=== PATIENT | male | born 1975 | race Caucasian/White ===

== ENCOUNTER 2019-11-13 14:51 | Emergency (ER) | payer OTHER, SELFPAY ==
[2019-11-13 14:56] VITALS: BP 120/82; PULSE 98; RESP 16; TEMP 36.9; O2SAT 98; BMI 24.3
[2019-11-13] MEDS: LIDO 1%/SOD BICARB 8.4% (10ML) 10 ML SYRINGE INJ (15:35)
--- NOTE | 2019-11-13 15:40 | ED.SKABFB ---
HPI - Skin/Abscess/Foreign Bdy <ISAURA SandovalP - Last Filed: 11/13/19 19:46> General Chief complaint: Skin/Abscess/Foreign Body Stated complaint: left middle finger needs drained Time Seen by Provider: 11/13/19 14:57 Source: patient Mode of arrival: Ambulatory Limitations: no limitations History of Present Illness HPI narrative: This is a 44-year-old male, smoker, who presents to ED with significant other with chief complain of left 3rd distal finger pain around the nail for last 3 days. Patient denies fever, chills, nausea or vomiting. Patient noticed soft spot around the nails and hardening on finger pads. Patient had started on Keflex q.i.d. for 7 days yesterday when he was evaluated by his primary care physician at [facility]. Spouse reports patient already had about 4 doses of Keflex at this time but pain is not improving so day presents to ED. patient denies injuring affected finger or has open skin. Patient denies history of diabetes or frequent skin infection. Patient dominant hand right-sided. 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 Related Data Home Medications Medication Instructions Recorded Confirmed No Known Home Medications 04/17/18 04/17/18 Allergies Allergy/AdvReac Type Severity Reaction Status Date / Time No Known Drug Allergies Allergy Verified 04/16/18 08:52 Review of Systems <BRADEN Sandoval - Last Filed: 11/13/19 19:46> Review of Systems Narrative: General: Denies fever, chills, fatigue, malaise, sweats. HEENT: Denies sinus pain, ear pain, sore throat, difficulty swallowing, dizziness. Respiratory: Denies dyspnea, cough, wheezing, hemoptysis, sputum. Cardiovascular: Denies chest pain, palpitations, orthopnea, edema. Gastrointestinal: Denies nausea, vomiting, abdominal pain, diarrhea, constipation, melena. : Denies dysuria, frequency, incontinence, hematuria, urinary retention. Musculoskeletal: See HPI Skin: Denies rash, skin lesions, or other. Neurologic: Denies weakness, headache, numbness, change in speech, confusion, seizures, incoordination. Psychiatric: No concerning psychosocial issues. 12-point review of systems is negative except for those stated above. Patient History <BRADEN Sandoval - Last Filed: 11/13/19 19:46> Medical History Arthritis (Acute) Surgical History Hx of right knee surgery (Acute) Social History household members: spouse Smoking Status: Current every day smoker alcohol intake: current Smoking Status: Current every day smoker alcohol intake frequency: a few times a week Substance Use Type: does not use Exam <BRADEN Sandoval - Last Filed: 11/13/19 19:46> Narrative Exam Narrative: General appearance: well developed, well nourished, in no acute distress. Head: normocephalic, atraumatic, no scalp lesions, non-tender. ENT: Bilateral auditory canals and tympanic membranes clear. Hearing grossly intact. Nose without bleeding, purulent discharge, septal hematoma or deviation. Turbinate without erythema or swelling. Facial sinuses nontender to palpate. Mucous membrane moist, no mucosal lesion. Throat without erythema, tonsillar hypertrophy or exudate. Uvula in midline, airway patent. Neck/Thyroid: neck supple, full range of motion, no visible masses or meningeal signs. No JVD, non-tender without lymphadenopathy. Skin: no suspicious rashes, lesions over visible areas. Warm and dry and appropriate color for ethnicity. Heart: no clubbing, no cyanosis, no edema. S1 and S2 normal. RRR w/o murmurs, clicks, or bruits. Lungs: Breathing even and unlabored. No stridor. No accessory muscles used. Able to speak in full sentences. Chest: normal shape and expansion. Abdomen: non-obese, non-distended. Neurologic: alert and oriented. 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 Psych: good eye contact, normal affect. Initial Vital Signs Initial Vital Signs: Vital Signs Temperature 98.5 F 11/13/19 14:56 Pulse Rate 98 H 11/13/19 14:56 Respiratory Rate 16 11/13/19 14:56 Blood Pressure 120/82 11/13/19 14:56 Pulse Oximetry 98 11/13/19 14:56 Extrem Left upper extremity: wrist and hand Details: abnormal to inspection, normal capillary refill, neuromotor exam normal, neurosensory exam normal, tendon exam normal, tenderness Location: of the 3rd digit (dorsal aspect Surrounding the nail and finger pad) Location: at the proximal phalanx, vascular exam Details: radial pulse present and normal capillary refill, normal ROM of fingers (Tender but is able to move against resistance), warmth and swelling; no foreign bodies and no puncture wound Right lower extremity: normal to inspection and full ROM <Denita Ho DO - Last Filed: 11/21/19 07:38> Initial Vital Signs Initial Vital Signs: Vital Signs Temperature 98.5 F 11/13/19 14:56 Pulse Rate 98 H 11/13/19 14:56 Respiratory Rate 16 11/13/19 14:56 Blood Pressure 120/82 11/13/19 14:56 Pulse Oximetry 98 11/13/19 14:56 Procedures <[facility] - Last Filed: 11/13/19 19:46> Abscess I/D I&D #1: Site: hand (3rd finger distal phalange) Side (if applicable): left Local Anesthetic: lidocaine 1% and with bicarb Amount of anesthesia used (mL): 2 Technique: incised with #11 blade Amount of fluid expressed (mL): 0.5 Irrigation: Yes Packing used?: none Scores <BRADEN Sandoval - Last Filed: 11/13/19 19:46> GCS [place] coma scale eye opening: Spontaneous [place] coma scale verbal response: Orientated [place] coma scale motor response: Obey commands [place] coma scale total score: 15 Course <[facility] - Last Filed: 11/13/19 19:46> Orders Ordered: Discontinued Medications Diphtheria/Tetanus/Acell Pertussis (Adacel) 0.5 ml IM .ONCE ONE Stop: 11/13/19 15:37 Last Admin: 11/13/19 15:44 Dose: 0.5 ml Documented by: DELVIS Lidocaine/Sodium Bicarbonate (Buffered Lidocaine 10 Ml Syr) 10 ml INJ NOW ONE Stop: 11/13/19 15:07 Last Admin: 11/13/19 15:35 Dose: 2 ml Documented by: DELVIS Vital Signs Vital signs: Vital Signs - 8 hr 11/13/19 14:56 Temperature 98.5 F Pulse Rate 98 H Respiratory Rate 16 Blood Pressure 120/82 Pulse Oximetry 98 <Denita Ho DO - Last Filed: 11/21/19 07:38> Orders Ordered: Discontinued Medications Diphtheria/Tetanus/Acell Pertussis (Adacel) 0.5 ml IM .ONCE ONE Stop: 11/13/19 15:37 Last Admin: 11/13/19 15:44 Dose: 0.5 ml Documented by: DELVIS Lidocaine/Sodium Bicarbonate (Buffered Lidocaine 10 Ml Syr) 10 ml INJ NOW ONE Stop: 11/13/19 15:07 Last Admin: 11/13/19 15:35 Dose: 2 ml Documented by: DELVIS Vital Signs Vital signs: Vital Signs - 8 hr 11/13/19 14:56 Temperature 98.5 F Pulse Rate 98 H Respiratory Rate 16 Blood Pressure 120/82 Pulse Oximetry 98 MDM - Skin/Abscess/Foreign Bdy <BRADEN Sandoval - Last Filed: 11/13/19 19:46> Differential Diagnosis Differential diagnosis: Likely abscess of skin or subcutaneous tissue, cellulitis and other (Paronychia) Medical Records Attestation: I reviewed the patient's medical records. [facility] Narrative Medical decision making narrative: This is a 44-year-old male who presents to ED with left middle finger distal phalanx pain, swelling, redness for last 3 days. Patient was seen at [facility] and was started on Keflex 500 mg q.i.d. for 7 day course and had completed 4-5 doses at this time without improvement at this time. Spouse states they were hoping the pain will improve after 24 hour after starting antibiotic medication but there was no improvement and the decided to come in to ED for possible I&D. Affected side right above the nail in distal digit, fluctuation. Patient reports extreme tenderness to palpate and increasing pain with the extension and flexion of affected digit but neurovascular exam was intact with motor exam. Patient denies constitutional symptoms. He has been soaking in Epsom salt frequently last couple of days. I & D completed on affected finger, please see procedural note and take purulent discharge has been expressed. Wound culture was obtained and it is pending for sensitivity. Patient was informed to get a phone call if patient needs different or additional antibiotic medications from the culture result. Patient advised continue with Keflex q.i.d. dose for the rest of the course and he could soak affected finger into of very clean Epsom salt warm water. Advised wound care and dressing change at home as needed. Patient advised to take [id number] Tylenol and or Motrin as needed for discomfort and work excuse for 2 days provided to prevent excessive movements on affected finger. Return precautions were discussed with the patient and patient and spouse verbalized understanding and agrees with the treatment plan. Discharge Plan Departure Patient Disposition: Home Clinical Impression: Paronychia of finger of left hand Discharge Date/Time: 11/13/19 15:44 Instructions: DI for Paronychia Activity Restrictions/Additional Instructions: You have been diagnosed with [paronychia on left 3rd finger with abscess. This has been drained by incision and the culture has been sent out to lab for testing. You will get a phone call if requires different antibiotic medication.]. What to do: *Take your medications as directed. Please continue with your antibiotic medication Keflex 4 times a day for 7 day course. Please use [id number] Tylenol and or Motrin as needed for discomfort. You could use warm pack on affected site. Change the dressing as needed when he gets soiled. *Follow up with your primary care provider in 2-3 days, call for an appointment. Let them know you were seen in the ED and that we asked you to be seen in follow up. *Return to ED if you have any new, worsening, or concerning symptoms, such as [increasing pain, redness, swelling, fever, chills, warmth, chest pain, breathing difficulty, feeling like fainting or any acute concerns.]. Prescriptions: No Action No Known Home Medications RF: 0 Referrals: [facility] [Outside] Stand Alone Forms: Work Release Note
[2019-11-13] MEDS: TET,DIPH,PERTUSS(ACELL),VAC/PF 0.5 ML SYRINGE IM (15:44)
== END 2019-11-13 15:44 | disposition home or self-care (01) ==
PROVIDERS: Emergency Provider Nurse Practitioner Family
DX: L03.012 Cellulitis of left finger (principal); Z23 Encounter for immunization
CPT/HCPCS: 10060; 87070; 87075; 87205; 90471; 99281; 99283; 90715

== ENCOUNTER 2019-12-29 12:45 | Emergency (ER) | payer OTHER, SELFPAY ==
[2019-12-29 12:50] VITALS: BP 103/68; PULSE 82; RESP 18; TEMP 36.8; O2SAT 98
--- NOTE | 2019-12-29 14:51 | ED_ITS ---
HPI - Head Injury General Chief complaint: Head Injury Stated complaint: wound on his head from work injury Time Seen by Provider: 12/29/19 14:51 Source: patient Mode of arrival: Ambulatory Limitations: no limitations History of Present Illness HPI Narrative: This is a 44-year-old male comes emergency department with complaint of laceration to the left forehead. 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 He states he has had a package down at house, as he stood up in sort of turned quickly to the side he hit his on the jameson of the garage next the porch. Patient states that there was bleeding. He had a little bit of headache. Patient states he felt a little bit dizzy for several minutes afterwards. He denies any nausea or vomiting denies any vision changes. Denies any neck or back pain. No numbness, tingling or weakness in his extremities. Patient states he does not have any other injuries. He states his tetanus is up-to-date. He is not on any anticoagulant or blood thinners. He denies any other medical problems. He does smoke daily, occasional alcohol with no illicit. He came here today because he states lacerations seems small but his job told him he needed to be evaluated. Related Data Home Medications Medication Instructions Recorded Confirmed No Known Home Medications 04/17/18 04/17/18 Allergies Allergy/AdvReac Type Severity Reaction Status Date / Time No Known Drug Allergies Allergy Verified 04/16/18 08:52 Review of Systems Review of Systems ROS Unobtainable: All systems reviewed & are unremarkable except as noted in HPI and below Patient History Medical History Arthritis (Acute) Surgical History Hx of right knee surgery (Acute) Social History household members: spouse Smoking Status: Current every day smoker alcohol intake: current Smoking Status: Current every day smoker alcohol intake frequency: a few times a week Substance Use Type: does not use Exam Narrative Exam Narrative: GEN: Patient appears in mild distress. HEAD: Patient has a 1 cm superficial laceration of the left scalp just at the edge of the hairline patient laceration does not gap when pulled. No raccoon/Young sign. NECK: Nontender, painless range of motion, trachea midline Negative Nexus criteria, there is no line tenderness, distracting injury, altered mental status, neuro deficit, recent EtOH. EYES: PERRLA, EOMI ENT: External inspection normal, trachea is midline, TM's are normal no hemotypanum, Nares are clear, no septal hematoma, no dental or oral injury, airway is normal and with normal occlusion, No bony tenderness RESP: Chest is nontender and has symmetric movement, no ecchymosis, breath sounds are normal no crackles, wheezes or rales CVS: Heart sounds are normal, no murmur noted, No JVD. ABG/GI: Nontender, soft, normal bowel sounds, no distention, no organomegaly. NEURO: Oriented AOx3, neuro is grossly intact, sensation and motor is normal all 4 extremities moving, cranial nerves II through XII are intact, GCS is 15 PSYCH: Normal mood and affect SKIN: Intact, warm and dry, no crepitus and without decubitus BACK: No CVA tenderness, no vertebral tenderness, no step-off's, no crepitus EXT: Atraumatic, hips are nontender, no pedal edema, normal color and temperature, normal range of motion of extremities with normal tendon exam, 2+ pulses in all four extremities Initial Vital Signs Initial Vital Signs: Vital Signs Temperature 98.2 F 12/29/19 12:50 Pulse Rate 82 12/29/19 12:50 Respiratory Rate 18 12/29/19 12:50 Blood Pressure 103/68 12/29/19 12:50 Pulse Oximetry 98 12/29/19 12:50 Procedures Laceration Repair Laceration 1: Site: scalp Side (If applicable): left Size (cm): 1 Description: linear Pre-repair: wound explored Skin layer closed with: dermabond Scores GCS [place] coma scale eye opening: Spontaneous [place] coma scale verbal response: Orientated [place] coma scale motor response: Obey commands [place] coma scale total score: 15 Course Vital Signs Vital signs: Vital Signs - 8 hr 12/29/19 12:50 Temperature 98.2 F Pulse Rate 82 Respiratory Rate 18 Blood Pressure 103/68 Pulse Oximetry 98 MDM - Head Injury MDM Narrative Medical decision making narrative: Patient has very superficial laceration. There is no active bleeding. A small amount of Dermabond was placed help maintain is it does not gape when pulled that. Patient potentially have concussion although less likely he did have some dizziness immediately after but states those symptoms have resolved and is not continuing to have symptoms. Discussed return precautions. Patient and I discussed and plan for return to work in the short term. Patient feels comfortable with this plan as tetanus is up-to-date. 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 Discharge Plan Departure Patient Disposition: Home Clinical Impression: Laceration of scalp, Head injury Discharge Date/Time: 12/29/19 16:41 Instructions: DI for Laceration Repair With Dermabond Activity Restrictions/Additional Instructions: You may follow-up in the next several days if you are having any additional or concerning symptoms. You may take Tylenol and/or ibuprofen as needed for pain. Wound Care: Keep wound(s) clean and dry. Wash daily with soap and water only. Do not use over the counter products (alcohol or peroxide)on the wounds unless instructed by a physician. If wound condition worsens (increased/expanding redness, developing fluid blisters, or worsening pain), either contact your doctor for an urgent re- assessment , or return to the Emergency Department. Return to the Emergency Department for any new or worsening symptoms. Return if fever greater than 100.4 Fahrenheit, increased swelling, increasing pain or worsening symptoms such as increased discharge or spreading redness. If you are having severe headaches, altered mental status or confusion, new vision changes, persistent dizziness, nausea or vomiting, new weakness, numbness, neck pain or back pain or other new or concerning symptoms. Prescriptions: No Action No Known Home Medications RF: 0
== END 2019-12-29 16:41 | disposition home or self-care (01) ==
PROVIDERS: Emergency Provider Emergency Medicine
DX: S01.01XA Laceration without foreign body of scalp, initial encounter (principal); S09.90XA Unspecified injury of head, initial encounter; W22.8XXA Striking against or struck by other objects, initial encounter; Y99.0 Civilian activity done for income or pay
CPT/HCPCS: 99282; 99283

== ENCOUNTER → 2020-04-06 15:41 | Outpatient (CLI) | payer OTHER, SELFPAY ==
--- NOTE | 2020-04-06 | DI.MRI.S_ITS ---
PROCEDURE: MR KNEE RT WO/W CON INDICATIONS: Pain in right knee TECHNIQUE: Noncontrast sagittal PD fast spin echo and T2 fast spin echo with fat saturation, sagittal 3-D FLASH with fat saturation; coronal T1 spin echo and PD fast spin echo with fat saturation, and axial T1 spin echo and PD fast spin echo with fat saturation through the knee. Post-contrast axial, coronal, and sagittal T1 spin echo with fat saturation through the knee. COMPARISON: [facility], MR, LOWER EXTREMITY JOINT W CONTRAST, 08/07/2011, 10:43. FINDINGS: Image quality: Excellent. Menisci: Signal abnormality is again noted within posterior horn of medial meniscus extending into the inferior articulating surface essentially unchanged from 2011 study and is most consistent with postsurgical changes and myxoid degenerative changes in this region. There is no evidence of focal lateral meniscal tear. The meniscal root ligaments appear intact. Cruciate ligaments: Degenerative changes in midportion of anterior cruciate ligament is seen. Posterior cruciate ligament is intact. The. Medial structures: The medial collateral ligament appears intact. The posterior oblique ligament, semimembranosus tendon insertions, and oblique popliteal liagment, and meniscocapsular junction appear intact. Visualized portions of the pes anserinus tendons appear normal. No abnormal bursal fluid. Lateral structures: The lateral collateral ligament, long and short heads of the biceps femoris tendon appear intact. The popliteus tendon appears normal; the popliteofibular ligament appears intact. The posterosuperior and anteroinferior popliteomeniscal fascicles appear intact. The arcuate and fabellofibular ligaments appear intact, around the lateral inferior geniculate artery. Iliotibial band appears normal. Anterior structures: Susceptibility artifacts are noted anterior to patella near distal quadriceps insertion on superior patella. The quadriceps and patellar tendons appear intact. Patellar alignment is normal. No femoral trochlear dysplasia or ventral trochlear prominence. No edema in the infrapatellar fat pad. Bones and cartilage: No suspicious osseous enhancement. Osteoarthritic changes are noted in medial femoral tibial compartment with significant chondromalacia. There is suggestion of multiple osteochondral lesions involving weight-bearing portion of medial femoral condyle and measures up to 7 mm in size with surrounding edema. Articulating cartilages in patellofemoral compartment and lateral femorotibial compartment are grossly intact. Joint space: There is small amount of joint fluid No Carolina's cyst. Normal appearing synovial plicae are incidentally noted. No suspicious soft tissue enhancement. IMPRESSION: 1. 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 No abnormal enhancing intraosseous lesion. Small amount of joint fluid. 2. 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 Chronic stable oblique tear in posterior horn medial meniscus cannot be entirely excluded. Lateral meniscus is grossly intact. 3. 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 No evidence of ACL rupture. PCL is intact. 4. Susceptibility artifact anterior to upper patella near quadriceps insertion. Quadriceps tendon and patellar tendon are intact. No abnormal soft tissue enhancement. Dictated by: Ivan Strange M.D. on 04/07/2020 at 10:51 Approved by: Ivan Strange M.D. on 04/07/2020 at 11:11
== END ==
PROVIDERS: PCP Family Medicine; Referring Provider Family Medicine; Visit Provider Family Medicine
DX: M25.561 Pain in right knee (principal); M17.11 Unilateral primary osteoarthritis, right knee; M94.261 Chondromalacia, right knee
CPT/HCPCS: 73723; A9579

== ENCOUNTER 2020-05-22 10:26 | Day surgery (SDC) | payer OTHER, SELFPAY ==
[2020-05-18 12:05] VITALS: BMI 24.9
[2020-05-22] VITALS (9 sets, daily range): BP systolic 102–120; BP diastolic 67–78; PULSE 73–85; RESP 13–19; TEMP 36.4–36.9; O2SAT 93–99; BMI 24.9
--- NOTE | 2020-05-22 07:48 | DI.RAD.S_ITS ---
PROCEDURE: XR KNEE RT 1TO2V INDICATIONS: post op uni knee TECHNIQUE: 2 view(s) of the knee acquired. COMPARISON: [facility] [place], CR, XR KNEE ARTHRITIC SERIES RT, 05/16/2020, 9:21. FINDINGS: Bones: Patient is status post knee joint arthroplasty. Hardware components are in expected positions. Visualized bony structures are intact. Soft tissues: Overlying postoperative changes are noted. IMPRESSION: Expected postoperative appearance of right knee arthroplasty. Dictated by: Desean Narvaez RR Interpreted: Karyna Stack MD on 05/22/2020 at 17:19 Approved by: Karyna Stack M.D. on 05/22/2020 at 17:44
--- NOTE | 2020-05-22 08:17 | SUR.PREOP ---
[facility] office called about Covid test. Message left on Kristie's voice mail.
[2020-05-22] MEDS: ACETAMINOPHEN 325 MG TABLET 975 MG PO (11:09)
[2020-05-22] MEDS: PREGABALIN 75 MG CAPSULE PO (11:10)
[2020-05-22] MEDS: CELECOXIB 200 MG CAPSULE PO (11:10)
[2020-05-22] MEDS: LACTATED RINGERS 1,000 ML 42 ML IV (11:26)
--- NOTE | 2020-05-22 12:05 | PM.PREOP ---
Pre-operative Note COVID-19 COVID-19 status: Negative Result date/Date tested (Pos, Neg/Pending): 05/19/20 Interval Note History & Physical reviewed/Exam performed by Physician: Yes Changes to H&P: No
[2020-05-22] MEDS: CEFAZOLIN 1 GM/50 ML FROZ.PIGGY IV (12:55)
[2020-05-22] MEDS: TRANEXAMIC ACID 1,000 MG VIAL 1000 MG INJ ×2 (13:00→13:58)
[2020-05-22] MEDS: BUPIVACAINE 0.25% W/ EPI 30 ML VIAL 60 ML INJ (13:26)
[2020-05-22] MEDS: MORPHINE 4 MG/ML INJ INJ (13:26)
[2020-05-22] MEDS: BUPIVACAINE LIPOSOME 266 MG/20 ML VIAL INJ (13:27)
--- NOTE | 2020-05-22 13:29 | SUR.OPER ---
Supine on padded OR bed. Pillow under head, arms secured on padded armboards <90 degree abduction. Safety belt across torso. Non-operative leg secured with tape over blanket over lower leg. Operative leg secured in [place] positioner.
--- NOTE | 2020-05-22 14:16 | PM.OP.1 ---
Operative Date/Time/Diagnoses Date of procedure: 05/22/20 Time of procedure: 14:16 Pre-op diagnosis: Right knee posttraumatic osteoarthritis Post-op diagnosis: same Procedure & Clinicians Procedure: Right knee medial unicompartmental arthroplasty Same procedure as scheduled: Yes Indications: The patient has had progressively worsening right knee pain with radiographic changes consistent with arthritis after multiple prior operative procedures. Non-operative management has failed and the patient has requested partial knee replacement. The risks, benefits and alternatives to surgery were discussed with the patient prior to proceeding. Risks discussed included, but were not limited to, failure to relieve pain, stiffness, infection, nerve damage, deep venous thrombosis, pulmonary embolism, stroke, coma, heart attack, permanent paralysis and , as well as the potential need for eventual revision of the prosthetic. Surgeon: Yobany Jones Journeyman Sheet Metal Worker: Cr Gordon Click Yes if Unassisted: No Anesthesia Type: General and Local Operative Notes Findings: Severe medial compartment osteoarthritis predominantly on the femoral side at the site of his multiple prior cartilage procedures. Closure Type: primary Specimen(s): none sent Prosthetic devices, grafts, tissues, transplants, or devices: Implants used in this procedure were manufactured by the [employer] and included a ZUK unicompartmental knee replacement system with a size E femoral component, a size 4 tibial component and an 8 mm tibial insert. Applied: implant(s) Estimated Blood Loss (mL): 20 Blood products transfused: none Tourniquet time (min): 44 Procedure in detail: The patient was seen in the pre-operative area, where the patient identified the right knee as the operative site and this was marked with my initials. The patient received pre-operative antibiotics, and was taken to the operating room and placed on the operative table in the supine position. After satisfactory anesthesia, a production pattern maker out was performed. The right leg was encircled with a tourniquet about the proximal thigh, and the leg was prepared from the toes to the tourniquet with ChloroPrep in the usual fashion and draped through sterile drapes. The leg was elevated and exsanguinated with Eschmark bandage and the tourniquet inflated to 250 mmHg pressure. The knee was approached through an approximately 12 cm incision utilizing his prior surgical scar and carried into the knee through a mid vastus arthrotomy. The anterior osteophytes and soft tissues were removed. The linked cutting guide for the distal femoral and proximal tibial cuts was inserted and carefully aligned to the appropriate tibial slope. It was fixed in position with pins and the cuts made. The sagittal vertical cut was made on the tibia and the tibial fragment removed. The femoral sizer was applied. The drill holes were created and the posterior and chamfer cuts made. The posterior capsule was injected with part of a mixture of 60 ml 0.25% Marcaine mixed with 20 ml Exparel and 4 mg of morphine for post-operative pain control. The remainder of this mixture was injected into the capsule and subcutaneous tissues during cement curing. The tibia was sized and prepared with the appropriate size guide. Trial tibial and femoral components were then placed. Range of motion was 0-135 degrees, with good stability throughout the range. The trials were then removed. The bone was prepared with pulsatile lavage, and dried with a sponge. Cement was applied and the final prosthetics placed. Excess cement was removed during and after cement curing. After confirming there was no extruded cement posteriorly, the final tibial insert was placed. The knee was copiously irrigated and the tourniquet deflated. Hemostasis was obtained. The capsule was closed with interrupted # 2 polyester suture in the capsule and a running 0 Vicryl in the intramuscular extension. The subcutaneous layer was closed with 3-0 Vicryl, and the skin with a running 3-0 V-Lock suture and Dermabond. An Aquacel Ag dressing was applied and the patient was taken to recovery having tolerated the procedure well. Complications: none Post-operative Condition: stable Disposition: PACU Plan for aftercare: The patient will be discharged today. He will be maintained on DVT prophylaxis with aspirin. He will be seen in follow-up in 2 weeks. He will receive prescriptions for oxycodone and Vistaril.
[2020-05-22] MEDS: ONDANSETRON 4 MG/2 ML INJ IV (14:37)
[2020-05-22] MEDS: hydrOXYzine pamoate 25 MG CAPSULE PO (14:38)
[2020-05-22] MEDS: OXYCODONE IR 5 MG TABLET PO ×2 (14:38→15:14)
[2020-05-22] MEDS: fentaNYL 100 MCG/2 ML INJ IV (15:04)
== END 2020-05-22 15:32 | disposition home or self-care (01) ==
PROVIDERS: PCP Family Medicine; Referring Provider Orthopaedic Surgery; Visit Provider Orthopaedic Surgery
PROC: (CPT 27446; principal; 2020-05-22 12:15)
DX: M17.31 Unilateral post-traumatic osteoarthritis, right knee (principal); F17.210 Nicotine dependence, cigarettes, uncomplicated
CPT/HCPCS: 27446; 73560; C1776; C9290; J1100; J2270; J2405; J2704; J3010

== ENCOUNTER → 2020-08-18 07:54 | Outpatient (CLI) | payer OTHER, SELFPAY ==
--- NOTE | 2020-08-18 | DI.ECHO.S_ITS ---
[facility]---------+ [facility] +---------+ : : [address] : : : : [id number] : : : : Phone: [phone]+ Echocardiogram Report + + :Name: SOTO THOMAS Study Date: 08/18/2020 Height: 69 in : :[facility] Weight: 170 lb : : Gender: Male BSA: 1.9 m2 : :: 1975 Age: 44 yrs BP: 110/77 mmHg: :Reason For Study: RBBB : : Performed By: Nithin Massey : :Referring: UNSPECIFIED : + + Interpretation Summary The left ventricle is normal in size. Left ventricular systolic function is normal without focal wall motion abnormalities. The ejection fraction is estimated to be 60-65%. Diastolic parameters suggest probable normal left ventricular diastolic function and normal filling pressures. The right ventricle is normal in size and function. Pulmonary artery pressures cannot be estimated because of the lack of a measurable TR jet velocity. The left atrium is mildly dilated. Right atrial size is normal. There is no significant valvular heart disease. The aortic root is normal size. Procedure: A two-dimensional transthoracic echocardiogram with color flow and Doppler was performed. The study quality was technically good. There is no prior echocardiogram noted for this patient. The patient was in normal sinus rhythm during the exam. Left Ventricle: The left ventricle is normal in size. There is normal left ventricular wall thickness. Left ventricular systolic function is normal without focal wall motion abnormalities. The ejection fraction is estimated to be 60-65%. Diastolic parameters suggest probable normal left ventricular diastolic function and normal filling pressures. Right Ventricle: The right ventricle is normal in size and function. Atria: The left atrium is mildly dilated. Right atrial size is normal. The interatrial septum is intact with no evidence for an atrial septal defect. Mitral Valve: The mitral valve is normal in structure and function. There is no mitral regurgitation noted. Aortic Valve: The aortic valve is trileaflet. The aortic valve opens well. No aortic regurgitation is present. Tricuspid Valve: The tricuspid valve is normal in structure and function. There is a trace or physiologic amount of tricuspid regurgitation. Pulmonary artery pressures cannot be estimated because of the lack of a measurable TR jet velocity. Pulmonic Valve: The pulmonic valve is normal in structure and function. There is trace pulmonic regurgitation. There is no significant valvular heart disease. Great Vessels: The aortic root is normal size. The dimensions of the ascending aorta are normal. The pulmonary artery is normal size. The IVC is of normal diameter and collapses greater than 50% with a sniff. This suggests a low right atrial pressure of 3 mm Hg. Pericardium/ Pleura There is no pericardial effusion. There is no pleural effusion. MMode/2D Measurements & Calculations LVIDd: 4.9 cm LVOT diam: 2.2 cm LVIDs: 3.0 cm Ao root diam: 4.0 cm FS: 38.7 % asc Aorta Diam: 3.3 cm EPSS: 0.47 cm Ao Arch Diam (Prox Trans): 2.5 cm IVSd: 0.81 cm LVPWd: 0.73 cm LV schwartz. diameter/BSA (cm/m^2): 2.5 LV sys. diameter/BSA (cm/m^2): 1.6 LA dimension: 3.3 cm RA long axis: 4.6 cm LA A2 area: 21.5 cm2 RA area: 17.0 cm2 LA A4 area: 18.8 cm2 RA vol: 53.0 ml LA length (vol): 5.2 cm RA : 27.5 ml/m2 LA vol: 65.8 ml IVC diam: 1.1 cm LA vol index: 34.1 ml/m2 TAPSE: 2.7 cm Doppler Measurements & Calculations Ao V2 max: 125.9 cm/sec LVOT Max Michael: 116.1 cm/sec Ao V2 mean: 94.5 cm/sec LV V1 max P.4 mmHg Ao max P.3 mmHg LV V1 VTI: 19.5 cm Ao mean P.8 mmHg MINH(I,D): 2.9 cm2 Ao V2 VTI: 25.2 cm MINH(V,D): 3.4 cm2 sev ratio: 0.77 MINH indexed to BSA (cm^2/m^2): 1.5 MV E max michael: 70.8 cm/sec PA V2 max: 85.5 cm/sec MV A max michael: 53.2 cm/sec PA V2 mean: 59.0 cm/sec MV E/A: 1.3 PA mean P.5 mmHg Med Peak E' Michael: 7.9 cm/sec PA pr(Accel): 13.9 mmHg E/E' med: 9.0 Lat Peak E' Michael: 13.7 cm/sec E/E' lat: 5.2 E/e' average: 7.1 MV dec time: 0.20 sec SV(LVOT): 72.3 ml Reading Physician:09:31 AM
== END ==
PROVIDERS: PCP Family Medicine; Referring Provider Family Medicine; Visit Provider Family Medicine
DX: I45.10 Unspecified right bundle-branch block (principal)
CPT/HCPCS: 93306

== ENCOUNTER → 2020-11-14 10:40 | Oncology outpatient (ONC) | payer OTHER, SELFPAY ==
[2020-10-24 11:40] VITALS: BP 117/72; PULSE 77; RESP 18; TEMP 37; O2SAT 99
--- NOTE | 2020-10-24 12:29 | P.CONONC_ITS ---
History of Present Illness - Data of Consult Primary Care Provider: Akosua Cherry MD - Consult Narrative Narrative: Sena Hernandez is a 45 year old male referred for further evaluation of an elevated white count. He states that the 1st blood count he recalls was done in April prior to a partial knee replacement. On May 18 he was found to have a hemoglobin of 15.0 hematocrit 44.2 with normal red cell indices. Platelets were 232,000 white count 47523 with a normal auto differential. Absolute neutrophil count was 13,000, absolute lymphocyte count 3300 absolute monocyte count 1000, all slightly elevated. A basic metabolic panel from that date was normal. His knee replacement surgery was uncomplicated. A preoperative MRI showed no evidence of a bone marrow abnormality. On September 06 follow-up blood testing was obtained showing hemoglobin of 15.6 hematocrit 46.6 platelets [id number] white count 70050 with a normal auto diff, absolute neutrophil count 6400, absolute lymphocyte count 3480 absolute monocyte count 1060, all slightly elevated. There were no nucleated red cells present. A comprehensive metabolic panel was normal. Follow-up CBC on September 18 showed hemoglobin of 15.0 hematocrit 44.3 with normal red cell indices platelets [id number] white count 08826 with a normal automated differential and again a slight elevation of neutrophils, lymphocytes and monocytes. There were no nucleated red cells. Sedimentation rate was 6 C reactive protein 0.33 TSH 3.057, all normal. Because of his persistent leukocytosis he is referred for hematology consultation. He generally feels good. He has some fatigue. He notes dyspnea on exertion over the last 6 months or so which he attributes to deconditioning. He has not been active her exercising. He has an occasional cough which he attributes to smoking has not changed. He has gained some weight over the last few months. He denies any fever, chills, night sweats, new aches or pains, bleeding from anywhere, nausea, vomiting, mouth sores, trouble swallowing, anorexia, skin rash, lumps or bumps, frequent infections. All other systems are negative. Past medical history 1. His maternal grandfather had lung cancer. Family history is otherwise negative for any hematologic or oncologic illnesses 2. He has had numerous previous surgeries on his right knee had his recent partial right knee replacement. 3. No known drug allergies 4. Current medications include sildenafil and nicotine patches 5. He has been a pack-a-day smoker for about 25 years. He has cut down to half pack-a-day last 2 months. He is an occasional drinker. He is retired after 20 years in the [employer]. He lives with his fiancee and 6 children. 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 6. History of mild left atrial enlargement noted on echocardiogram earlier this year with a normal ejection fraction 7. He denies high blood pressure, diabetes, rheumatic fever, tuberculosis, heart attacks, strokes, stomach ulcers, pneumonia or any kind of cancer CC: Yao Fermin MD Home Medications and Allergies Home Medications Medication Instructions Recorded Confirmed Type naproxen sodium 440 mg PO BID PRN 10/24/20 10/24/20 History nicotine 1 patch TRANSDERMAL DAILY 10/24/20 10/24/20 History sildenafil 50 mg PO DAILY PRN 10/24/20 10/24/20 History Allergies Allergy/AdvReac Type Severity Reaction Status Date / Time No Known Drug Allergies Allergy Verified 05/22/20 11:03 Medical History - Medical, Surgical, Family History Medical History: Medical History (Last Updated 05/18/20 @ 12:09 by Breanna Vivas RN) Arthritis Clavicle fracture Osteoarthritis Thumb fracture Surgical History: Surgical History (Last Updated 05/18/20 @ 12:10 by Breanna Vivas RN) Hx of right knee surgery Status post unicompartmental knee replacement, left Onset Date: 04/17/18 - Social History Smoking Status: Current every day smoker Review of Systems - Patient Self-Reported Symptoms SR respiratory issues: Shortness of breath SR Genitourinary issues: Sexual difficulties SR Neuro issues: Tremors or shaking Exam Vital signs: Vital Signs Temp Pulse Resp BP Pulse Ox 10/24/20 11:40 98.6 F 77 18 117/72 99 Intake and Output 10/23/20 10/24/20 10/24/20 23:59 07:59 15:59 Other: Weight 80.3 kg Patient Weight 10/24/20 23:59 Weight 80.3 kg Narrative: He was awake alert oriented x3. Was fully ambulatory and in no acute distress. There was no lymphadenopathy in the cervical, supraclavicular, axillary, inguinal or femoral regions. Lungs were clear without wheezes or rales. Heart showed regular rate and rhythm without murmur, gallop or rub. The abdomen is soft and nontender without any palpable enlargement of liver spleen. There was no evidence of phlebitis in the lower extremities. The spleen was not palpable in the right lateral decubitus position. Assessment and Plan (1) Leucocytosis Status: Acute Mr. Hernandez has an elevated white blood count 1st noted in April of this year. He is not anemic and his red cell indices and platelet count are normal. He has not had abnormal forms circulating on his automated differential. He is clinically well. He does not recall having older blood counts done and does not have a record of any old counts and his records at home. We discussed potential causes of leukocytosis. Chronic infections can do this but he does not have a clinical history that fits with that. Chronic inflammation could also result in elevated white count but he has no history of this as well as normal sedimentation rate and C reactive protein. Myeloproliferative syndromes can be associated with elevated white count. His red cells and platelets are normal. He does not have a palpable spleen or abnormal white cell differential. I suggested that we screening for chronic myelogenous leukemia. His white count has been elevated over the last 4 months or so, mostly in a pattern of neutrophilia. We reviewed the fact that if he did have chronic myelogenous leukemia, this would have significant treatment implications since we have highly effective therapy for this condition. Lymphoproliferative disorders can also cause an elevated white count. He does not have atypical lymphocytes circulating or other abnormalities in his blood count, chemistry panel or physical exam that would suggest this. He is also clinically well. However, this could be an early manifestation of a lymphoproliferative syndrome. We also discussed the fact that smoking is a common causes of an elevated white count. It is typically a mild elevation as Mr. Hernandez has. The level can sometimes correlate with the amount of smoking and he has had a slight decline in his white count with cutting back to half a pack a day. I explained this is a diagnosis of exclusion at there is no test we do that tells us for sure whether not a leukocytosis is smoking related. For today he will have a CBC with manual differential. Will also do a peripheral smear review. Blood will be sent for BCR-ABL testing and will see him back afterwards for review of these findings. He will call if any problems or issues should arise in the interim. Impression: 1. Leukocytosis 1st noted on a blood count done in May 18, 2020, persistent into August of 2020 2. Automated differential shows an increase in neutrophils, lymphocytes and monocytes, but predominantly neutrophils 3. Negative examination 4. Patient is a smoker Recommendations: 1. CBC with manual differential 2. Peripheral smear review 3. BCR-ABL 4. Return afterwards for review of results I personally spent 36 minutes in today's [id number] visit with greater than 50 % of the time spent in counseling regarding the issues outlined above.
--- NOTE | 2020-10-25 08:53 | ONC.SCHED ---
Flow Cytometry and Path Smear referenced in PCP note were not drawn before patient seen in Onc clinic
[2020-10-26 14:13] LABS: Hematocrit 44.4 % (41-53); Hemoglobin 14.8 g/dL (13.5-17.5); Mean Corpuscular HGB Conc 33.4 % (30-36); Mean Corpuscular Hemoglobin 29.6 PG (26-34); Mean Corpuscular Volume 88.7 fL (80-100); Platelet Count 217 X10^3/uL (150-400); Red Cell Distribution Width 13.9 % (11.6-14.8); White Blood Cell Count 12.9 X10^3/uL (4.5-11.0)
[2020-10-26 14:43] LABS: Neutrophils Absolute Manual 8514 /uL (3000-5900); Total Cells Counted 100
[2020-10-26 14:44] LABS: RBC Morphology Normal Morphology
[2020-11-03 21:36] LABS: Interpretation Negative (.)
[2020-11-14 11:22] VITALS: BP 118/81; PULSE 72; RESP 16; TEMP 36.7; O2SAT 98
--- NOTE | 2020-11-14 15:10 | P.PNONC_ITS ---
PN -Subjective Interval history: Sean Hernandez is a 45 year old male who presents for follow-up evaluation of an elevated white count. He states that the 1st blood count he recalls was done in April prior to a partial knee replacement. On May 18 he was found to have a hemoglobin of 15.0 hematocrit 44.2 with normal red cell indices. Platelets were 232,000 white count 20643 with a normal auto differential. Absolute neutrophil count was 13,000, absolute lymphocyte count 3300 absolute monocyte count 1000, all slightly elevated. A basic metabolic panel from that date was normal. His knee replacement surgery was uncomplicated. A preoperative MRI showed no evidence of a bone marrow abnormality. On September 06 follow-up blood testing was obtained showing hemoglobin of 15.6 hematocrit 46.6 platelets 219924 white count 99030 with a normal auto diff, absolute neutrophil count 6400, absolute lymphocyte count 3480 absolute monocyte count 1060, all slightly elevated. There were no nucleated red cells present. A comprehensive metabolic panel was normal. Follow-up CBC on September 18 showed hemoglobin of 15.0 hematocrit 44.3 with normal red cell indices platelets [id number] white count 12119 with a normal automated differential and again a slight elevation of neutrophils, lymphocytes and monocytes. There were no nucleated red cells. Sedimentation rate was 6 C reactive protein 0.33 TSH 3.057, all normal. Because of his persistent leukocytosis he was referred for hematology consultation. He had follow-up labs done and comes in today to review results. He generally feels good. He has some fatigue. He notes dyspnea on exertion over the last 6 months or so which he attributes to deconditioning. He has not been active her exercising. He has an occasional cough which he attributes to smoking has not changed. He has gained some weight over the last few months. He denies any fever, chills, night sweats, new aches or pains, bleeding from anywhere, nausea, vomiting, mouth sores, trouble swallowing, anorexia, skin rash, lumps or bumps, frequent infections. All other systems are negative. Past medical history 1. His maternal grandfather had lung cancer. Family history is otherwise negative for any hematologic or oncologic illnesses 2. He has had numerous previous surgeries on his right knee had his recent part ial right knee replacement. 3. No known drug allergies 4. Current medications include sildenafil and nicotine patches 5. He has been a pack-a-day smoker for about 25 years. He has cut down to half pack-a-day last 2 months. He is an occasional drinker. He is retired after 20 years in the [employer]. He lives with his fiancee and 6 children. 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 6. History of mild left atrial enlargement noted on echocardiogram earlier this year with a normal ejection fraction 7. He denies high blood pressure, diabetes, rheumatic fever, tuberculosis, heart attacks, strokes, stomach ulcers, pneumonia or any kind of cancer - Patient Self-Reported Symptoms SR Constitution: Fatigue/Malaise SR respiratory issues: Shortness of breath SR Cardiovascular issues: Shortness of breath with activity or lying flat SR Genitourinary issues: Sexual difficulties SR Neuro issues: Tremors or shaking Home Medications and Allergies Home Medications Medication Instructions Recorded Confirmed Type naproxen sodium 440 mg PO BID PRN 10/24/20 11/14/20 History nicotine 1 patch TRANSDERMAL DAILY 10/24/20 11/14/20 History sildenafil 50 mg PO DAILY PRN 10/24/20 11/14/20 History Allergies Allergy/AdvReac Type Severity Reaction Status Date / Time No Known Drug Allergies Allergy Verified 05/22/20 11:03 Exam Vital signs: Vital Signs Temp Pulse Resp BP Pulse Ox 11/14/20 11:22 98.0 F 72 16 118/81 98 Intake and Output 11/13/20 11/14/20 11/14/20 23:59 07:59 15:59 Other: Weight 79.9 kg Patient Weight 11/14/20 23:59 Weight 79.9 kg Narrative: He was awake alert oriented x3. Was fully ambulatory and in no acute distress. Results - Labs Laboratory Last Values WBC 12.9 X10^3/uL (4.5-11.0) H 10/26/20 13:12 RBC 5.00 X10^6/uL (4.5-5.9) 10/26/20 13:12 Hgb 14.8 g/dL (13.5-17.5) 10/26/20 13:12 Hct 44.4 % (41-53) 10/26/20 13:12 MCV 88.7 fL (80-100) 10/26/20 13:12 MCH 29.6 PG (26-34) 10/26/20 13:12 MCHC 33.4 % (30-36) 10/26/20 13:12 RDW 13.9 % (11.6-14.8) 10/26/20 13:12 Plt Count 217 X10^3/uL (150-400) 10/26/20 13:12 Total Counted 100 10/26/20 13:12 Seg Neutrophils % 66.0 % (38-70) 10/26/20 13:12 Lymphocytes % (Manual) 21.0 % (25-45) L 10/26/20 13:12 Atypical Lymphs % 7.0 % (-0) H 10/26/20 13:12 Monocytes % (Manual) 6.0 % (2-11) 10/26/20 13:12 Neutrophils # (Manual) 8514 /uL (2983-4940) H 10/26/20 13:12 RBC Morphology Normal morphology 10/26/20 13:12 Smear Path Review 10/26/20 13:12 BCR/abl Background Comment (.) 10/26/20 13:12 BCR/abl Method Comment (.) 10/26/20 13:12 BCR/abl e1a2 Transcript Comment % (.) 10/26/20 13:12 BCR/abl e13a2 (b2a2) Transcript Comment % (.) 10/26/20 13:12 BCR/abl e14a2 (b3a2) Transcript Comment % (.) 10/26/20 13:12 BCR/abl Director Rev Comment (.) 10/26/20 13:12 BCR/abl1 Quant Interp Negative (.) 10/26/20 13:12 Assessment and Plan (1) Leucocytosis Status: Acute Mr. Hernandez has an elevated white blood count 1st noted in April of this year. He is not anemic and his red cell indices and platelet count are normal. His BCR- ABL is negative which would exclude a diagnosis of chronic myelogenous leukemia, the most important potential cause of his leukocytosis. He does have atypical forms on his manual differential but pathology review of his peripheral smear did not show any worrisome findings. He is a smoker, his most recent total white count was normal. Accordingly, I do not think further workup is indicated at this time. I did suggest that he get an annual CBC done. Will schedule him here for year. If he prefers to get this done through his primary care physician, I think that is also fine. If there were significant change in his counts over time, he we should be Tucker assessed by Hematology. Impression: 1. Leukocytosis 1st noted on a blood count done in May 18, 2020, persistent into August of 2020, with total white count normal on CBC from earlier this month. 2. Automated differential shows an increase in neutrophils, lymphocytes and monocytes, but predominantly neutrophils 3. Negative examination 4. Patient is a smoker 5. Negative BCR-ABL 6. Atypical lymphs noted on manual differential but peripheral smear review by pathologist was normal Recommendations: 1. No additional hematology workup is indicated at the present time 2. Patient was informed that the likely cause of his mild leukocytosis is smoking 3. Annual CBC with manual differential. This was scheduled for here in 1 year but could be done under the direction of his primary care provider if he so desires 4. Would be happy to see him again in time in the future if we could be of assistance in his care.
== END ==
PROVIDERS: PCP Family Medicine; Referring Provider Family Medicine; Visit Provider Internal Medicine
DX: D72.829 Elevated white blood cell count, unspecified (principal); R53.83 Other fatigue; R06.09 Other forms of dyspnea; F17.210 Nicotine dependence, cigarettes, uncomplicated
CPT/HCPCS: 36415; 81206; 81207; 85025; 99203; 99213; 99214

== ENCOUNTER → 2022-05-06 10:04 | Outpatient (CLI) | payer OTHER, SELFPAY ==
[2022-05-06 10:57] LABS: COVID19 -Nasal RAPID Negative (Negative)
[2022-05-06 12:26] LABS: Cholesterol 213 mg/dL (140-199); HDL Cholesterol 43 mg/dL (40-60); LDL Cholesterol Calculated 145 mg/dL (<100); Triglycerides 124 mg/dL (35-150)
== END ==
PROVIDERS: Surgery; PCP Student in an Organized Health Care Education/Training Program; Referring Provider Internal Medicine Cardiovascular Disease; Visit Provider Internal Medicine Cardiovascular Disease
DX: Z00.00 Encounter for general adult medical examination without abnormal findings (principal); Z01.812 Encounter for preprocedural laboratory examination; Z20.822 Contact with and (suspected) exposure to COVID-19
CPT/HCPCS: 36415; 80061; 87635; C9803

== ENCOUNTER 2022-05-09 12:26 | Day surgery (SDC) | payer OTHER, SELFPAY ==
--- NOTE | 2022-05-09 | PATH_ITS ---
[facility] Accession Number: [id number] . 01 Material submitted: . sigmoid colon - SIGMOID POLYP . 01 Clinical history: . SDC OTHER FECAL ABNORMALITIES . 01 Diagnosis: Sigmoid Colon Polyp, Biopsy: Tubular adenoma. MRV 05/14/2022 1142 Local . 01 Electronically signed: . Wilian Blackwell MD, PhD, Pathologist NPI- [id number] . 01 Gross description: . SIGMOID POLYP: Received in formalin is 1 fragment(s) of whitehead, soft tissue measuring 0.3 x 0.3 x 0.2 cm submitted entirely in 1 cassette(s) /RAFAEL 05/10/2022 2045 Local . 01 Pathologist provided ICD-10: D12.5 . 01 CPT . 107232 Performed at: 01 [facility] [address] [place] [address] [id number] MD Gennaro Ng MD Phone: [phone]
[2022-05-09 12:55] VITALS: BP 119/79; PULSE 82; RESP 15; TEMP 36.9; O2SAT 97; BMI 24.3
[2022-05-09] MEDS: LACTATED RINGERS 1,000 ML 42 ML IV (13:04)
--- NOTE | 2022-05-09 13:32 | PM.HP.1 ---
History of Present Illness History of Present Illness Date Patient Seen: 05/09/22 Time Patient Seen: 13:32 Chief complaint: SDC Narrative: Sean is a 46-year-old man who had a recent positive Cologuard test. He reports that he has known hemorrhoids. He has no known family history members of colon cancer. 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) Family & Social History Social History: household members spouse Tobacco & Substance use: Tobacco type cigarettes Smoking Status Current every day smoker alcohol intake current alcohol intake frequency a few times a month Substance Use Type marijuana Meds Home Medications and Allergies Home Medications Medication Instructions Recorded Confirmed Type naproxen sodium 220 mg tablet 440 mg PO BID PRN Pain (Scale 10/24/20 11/14/20 History Score 1-3) nicotine 21 mg/24 hr daily 1 patch transdermal DAILY 10/24/20 11/14/20 History transdermal patch sildenafil 50 mg tablet 50 mg PO DAILY PRN Sexual Activity 10/24/20 11/14/20 History sodium sul 1.479 gram-potas ch See Rx Instructions PO PER PKG DIR 04/24/22 Rx 0.188 gram-magnes sul 0.225 gram #24 tabs tablet (Sutab) Allergies Allergy/AdvReac Type Severity Reaction Status Date / Time No Known Drug Allergies Allergy Verified 05/09/22 12:59 Exam Vital Signs (past 8 hours): - 05/09/22 12:55 Temperature 98.5 F Pulse Rate 82 Respiratory Rate 15 Blood Pressure 119/79 Pulse Oximetry 97 Oxygen Delivery Method Room Air Oxygen Delivery Method Room Air Const General: healthy appearing Resp Effort & Inspection: normal respiratory effort GI Palpation: soft Assessment & Plan Assessment and plan (1) Positive colorectal cancer screening using Cologuard test: Status: Acute Plan 46-year-old man with a positive Cologuard test. We reviewed the risks benefits and rationale for colonoscopy and he agreed to proceed. COVID-19 COVID-19 status: Negative Result date/Date tested (Pos, Neg/Pending): 05/08/22 Time Spent With Patient Critical Care time: I spent a total of [] minutes of critical care time on this patient's care today; this time is exclusive of procedural time.
--- NOTE | 2022-05-09 14:50 | PM.OP.COLON ---
Operative Date/Time/Diagnoses Date of procedure: 05/09/22 Time of procedure: 14:50 Pre-op diagnosis: Positive Cologuard test Post-op diagnosis: same Procedure & Clinicians Study performed: Colonoscopy Same procedure as scheduled: Yes Surgeon: Desean Edmondson Procedure Notes Procedure in detail: Surgeon: Desean Edmondson MD Procedure: The patient was brought to the endoscopy suite, placed in left lateral decubitus position. The patient was connected to monitoring devices. A time-out was performed. Sedation was administered. Once the patient was adequately sedated, a digital rectal exam was performed and was normal. The scope was then inserted and advanced to the cecum where the appendiceal orifice was identified and photographed. The scope was then slowly withdrawn over greater than 6 minutes. The mucosa was thoroughly inspected. There was a 5 mm polyp in the sigmoid colon removed with a cold snare. The scope was retroflexed in the rectum. There were mild internal hemorrhoids. The scope was straightened and removed. The patient was awakened and brought to recovery. Versed: 9 mg Fentanyl: 150 mcg EBL: 5 mL Findings: 5 mm polyp in the sigmoid colon Scope withdrawal time: 9 Sedation minutes: 12 Post-procedure Recommendations: Will call with biopsy results Disposition: PACU
[2022-05-09 14:53] VITALS: BP 107/76; PULSE 84; RESP 15; O2SAT 96
[2022-05-09 14:58] VITALS: BP 110/77; PULSE 94; RESP 14; O2SAT 96
[2022-05-09 15:03] VITALS: BP 107/72; PULSE 84; RESP 15; O2SAT 95
[2022-05-09 15:07] VITALS: BP 98/66; PULSE 84; RESP 15; O2SAT 97
[2022-05-09 15:09] VITALS: BP 109/76; PULSE 87; RESP 18; O2SAT 98
== END 2022-05-09 15:35 | disposition home or self-care (01) ==
PROVIDERS: PCP Student in an Organized Health Care Education/Training Program; Referring Provider Surgery; Visit Provider Surgery
PROC: 0DJD8ZZ Inspection of Lower Intestinal Tract, Via Natural or Artificial Opening Endoscopic (ICD-10-PCS; CPT 45378; principal; 2022-05-09 13:45)
DX: R19.5 Other fecal abnormalities (principal); F17.210 Nicotine dependence, cigarettes, uncomplicated; K64.8 Other hemorrhoids; D12.5 Benign neoplasm of sigmoid colon
CPT/HCPCS: 45385; 99152